=== PATIENT | female | born 1950 | race Caucasian/White ===

== ENCOUNTER 2018-04-01 09:57 | Inpatient (IN) | payer OTHER ==
[~2018-04-01] VITALS: Ht 152.4 cm; Wt 54.4 kg
[~2018-04-01 09:57] MED LIST: GASTRINEX CAPSU1 CAP; IMODIUM A-D2 M2 PO; LEVSIN0.125 MG; LISINOPRIL2.5 MG; SIMVASTATIN20 MG; TENORMIN25 MG PO
== END 2018-04-05 12:56 | disposition home or self-care (01) | DRG 390 ==
LOC: ER 09:57 → MEDJ 04-02 16:45
DX: K56.690 Other partial intestinal obstruction (principal); K59.01 Slow transit constipation; I10 Essential (primary) hypertension

== ENCOUNTER 2018-10-02 15:43 | Emergency (ER) | payer OTHER ==
[~2018-10-02] VITALS: Ht 152.4 cm; Wt 51.3 kg
== END 2018-10-02 21:02 | disposition home or self-care (01) ==
LOC: ER 15:43
DX: B96.0 Mycoplasma pneumoniae [M. pneumoniae] as the cause of diseases classified elsewhere (principal)

== ENCOUNTER 2020-06-28 20:30 | Inpatient (IN) | payer OTHER ==
[~2020-06-28] VITALS: Ht 152.4 cm; Wt 56.7 kg
[~2020-06-28 20:30] MED LIST changes: +INTESTINEX680 M1 PO; +PEPCID AC20 MG PO; +ZITHROMAX200 MG PO
== END 2020-07-01 10:29 | disposition home or self-care (01) | DRG 390 ==
LOC: ER 20:30 → SURG 06-29 06:56
PROVIDERS: ADMIT Surgery; ATTEND Surgery
PROC: BW21YZZ Computerized Tomography (CT Scan) of Abdomen and Pelvis using Other Contrast (ICD-10-PCS; principal; 2020-06-29)
DX: K56.690 Other partial intestinal obstruction (principal); I10 Essential (primary) hypertension

== ENCOUNTER 2021-12-21 08:20 | Outpatient (CLI) | payer OTHER | END 2021-12-21 09:56 | disposition home or self-care (01) | LOC: RX STUDY 08:20 | PROVIDERS: ATTEND Surgery | DX: K91.2 Postsurgical malabsorption, not elsewhere classified (principal) ==

== ENCOUNTER 2024-02-08 09:02 | Inpatient (IN) | payer OTHER ==
[~2024-02-08] VITALS: Ht 152.4 cm; Wt 58.1 kg
[2024-02-08] MEDS ORDERED: VISTARIL50 MG/ML IM (09:18)
[2024-02-08] MEDS ORDERED: TOPROL XL50 M1 PO (09:18)
[2024-02-08] MEDS ORDERED: KETOROLAC TROMETHAMINE 30 MG VIAL ONE (09:44)
[2024-02-08] MEDS ORDERED: 0.9 % SODIUM CHLORIDE 1,000 ML IV ONE (09:45)
[2024-02-08] MEDS ORDERED: KETOROLAC TROMETHAMINE 15 MG VIAL IV ONE (09:45)
[2024-02-08 10:12] LABS: HEMATOCRIT 40.8 % (36.0-45.00); HEMOGLOBIN 13.6 g/dL (12.0-15.00); MEAN CORPUSCULAR HEMOGLOBIN 30.7 pg (27.00-32.0); MEAN CORPUSCULAR HGB CONC 33.4 g/dl (32.0-36.0); PLATELET COUNT 273 K/uL (150-450); RED BLOOD COUNT 4.43 M/uL (4.00-6.00); RED CELL DISTRIBUTION WIDTH 12.8 % (11.5-14.5)
[2024-02-08 10:49] LABS: ALBUMIN 3.8 gm/dL (3.4-5.0); BILIRUBIN TOTAL 0.55 mg/dL (0.3-1.2); CALCIUM 9.4 mg/dL (8.5-10.1); CREATININE SERUM 0.7 mg/dL (0.55-1.02); GFR 81.57; GLOBULINA 3.8 G/DL (2.4-3.5); POTASSIUM 4.05 mEq/L (3.5-5.1); TOTAL PROTEIN 7.6 gm/dL (6.4-8.2)
[2024-02-08 12:22] LABS: PH,URINE 6.5 (5.0-8.0); URINE APPEARANCE Clear; URINE BILIRRUBIN Negative (NEGATIVE); URINE BLOOD Small; URINE COLOR Yellow; URINE GLUCOSE Negative (NEGATIVE); URINE LEUKOCYTE Negative; URINE NITRATE Negative; URINE PROTEIN 30 (NEGATIVE); URINE UROBILINOGEN 0.2 E.U./dl
[2024-02-08 12:26] LABS: URINE BACTERIA 13.8 uL (0.0-1933); URINE EPITHELIAL CELLS 1.8 uL (0.0-38.8); URINE RBC 46.4 uL (0.0-20.8)
[2024-02-08] MEDS ORDERED: LIDOCAINE HCL VISCOUS 20MG/ML BLIST 15ML MM ONE (12:57)
[2024-02-08] MEDS ORDERED: ONDANSETRON HCL 2 MG/ML VIAL IV ONE (14:00)
[2024-02-08] MEDS ORDERED: ONDANSETRON HCL 2 MG/ML VIAL ONE (14:06)
[2024-02-08] MEDS ORDERED: RINGERS SOLUTION,LACTATED 1,000 ML IV SCH (17:30)
[2024-02-08] MEDS ORDERED: ENALAPRILAT DIHYDRATE 1.25 MG/ML VIAL IV PRN (17:30)
[2024-02-08] MEDS ORDERED: ONDANSETRON HCL 4 MG in 0.9 % SODIUM CHLORIDE 50 ML IV PRN (17:30)
[2024-02-08] MEDS ORDERED: PIPERACILLIN/TAZOBACTAM SODIUM 3.375 GM VIAL IV ONE (17:54)
[2024-02-08] MEDS ORDERED: PIPERACILLIN/TAZOBACTAM SODIUM 3.375 GM in DEXTROSE 5 % IN WATER 100 ML IV SCH (18:00)
[2024-02-08 19:44] LABS: INR 0.98; PARTIAL THROMBOPLASTIN TIME 27.3 SECONDS (22.0-34.0); PROTHROMBIN TIME 10.3 SECONDS (9.0-11.5)
[2024-02-08 20:16] LABS: ALBUMIN 3.5 gm/dL (3.4-5.0); BILIRUBIN TOTAL 0.64 mg/dL (0.3-1.2); CREATININE SERUM 0.66 mg/dL (0.55-1.02); GFR 87.31; GLOBULINA 3.6 G/DL (2.4-3.5); POTASSIUM 4.04 mEq/L (3.5-5.1); TOTAL PROTEIN 7.1 gm/dL (6.4-8.2)
[2024-02-08 20:17] LABS: C-REACTIVE PROTEIN 0.47 MG/DL (0.00-0.29)
[2024-02-09] MEDS ORDERED: PIPERACILLIN/TAZOBACTAM SODIUM 3.375 GM VIAL IV ONE (01:47)
[2024-02-09] MEDS ORDERED: ENOXAPARIN SODIUM 40 MG/0.4 ML SYRINGE SUBCUTANEO SCH (09:00)
[2024-02-09] MEDS ORDERED: METOPROLOL SUCCINATE 50 MG TAB.SR.24H PO SCH (09:00)
[2024-02-09] MEDS ORDERED: METOCLOPRAMIDE HCL 5 MG/ML VIAL IV SCH (09:30)
[2024-02-09] MEDS ORDERED: FAMOTIDINE/PF 20 MG in 0.9 % SODIUM CHLORIDE 8 ML IV PUSH SCH (11:13)
== END 2024-02-10 10:10 | disposition home or self-care (01) | DRG 390 ==
LOC: ER 09:03 → SURH 18:35
PROVIDERS: General Practice; ADMIT Internal Medicine; ATTEND Internal Medicine
PROC: BW21YZZ Computerized Tomography (CT Scan) of Abdomen and Pelvis using Other Contrast (ICD-10-PCS; principal; 2024-02-08)
DX: K56.600 Partial intestinal obstruction, unspecified as to cause (principal)

== ENCOUNTER 2025-02-17 15:32 | Emergency (ER) | payer OTHER ==
[~2025-02-17] VITALS: Ht 162.6 cm; Wt 61.2 kg
[~2025-02-17 15:32] MED LIST changes: +TOPROL XL50 M1 PO; +VISTARIL50 MG/ML IM
[2025-02-17] MEDS ORDERED: KETOROLAC TROMETHAMINE 30 MG VIAL IM ONE (17:00)
[2025-02-17] MEDS ORDERED: KETOROLAC TROMETHAMINE 30 MG VIAL ONE (17:00)
== END 2025-02-17 19:05 ==
LOC: ER 15:43
DX: G89.11 Acute pain due to trauma (principal); I10 Essential (primary) hypertension; S49.82XA Other specified injuries of left shoulder and upper arm, initial encounter; W01.0XXA Fall on same level from slipping, tripping and stumbling without subsequent striking against object, initial encounter; Y93.89 Activity, other specified; Y92.018 Other place in single-family (private) house as the place of occurrence of the external cause; M85.822 Other specified disorders of bone density and structure, left upper arm
CPT/HCPCS: 73030; 73060; 96372; 99283; J1885

== ENCOUNTER 2025-02-25 12:08 | Outpatient (CLI) | payer OTHER | END 2025-02-25 12:09 | disposition home or self-care (01) | LOC: RAD 12:08 | PROVIDERS: ATTEND Orthopaedic Surgery | DX: M79.602 Pain in left arm (principal) ==